=== PATIENT | male | born 1990 | race African-American/Black ===

== ENCOUNTER 2021-09-24 11:40 | Emergency (ER) | payer SELFPAY ==
[2021-09-24] MEDS ORDERED: IBUPROFEN 400 MG TAB ONE (13:30)
--- NOTE | 2021-09-24 13:45 | EDPHYS ---
Physician Documentation [facility] Name: Jose Carlos Pugh IV Age: 30 yrs Sex: Male : 1990 Arrival Date: 09/24/2021 Time: 11:42 Bed DIS4 Private MD: NIKITA Physician Dimas Jang HPI: 09/24 13:37 This 30 yrs old Black Male presents to ER via Ambulatory with complaints of Shoulder timo Injury. 13:37 The patient or guardian complains of decreased range of motion, pain, that is chronic. timo right shoulder. Context: The problem was sustained at work, resulted from repetitive motion, an unknown reason, The patient experiences decreased range of motion, The patient reports no obvious deformity. Onset: The symptoms/episode began/occurred 6 month(s) ago. Modifying factors: the symptoms are alleviated by remaining still, The symptoms are aggravated by movement. Associated signs and symptoms: The patient has no apparent associated signs or symptoms. Severity of symptoms: At their worst the symptoms were mild, in the emergency department the symptoms. Treatment prior to arrival includes: no previous treatment. The patient has experienced similar episodes in the past, several times. Historical: - Allergies: 12:10 No Known Allergies; ss - Home Meds: 12:10 None [Active]; ss - PMHx: 12:10 Depressive disorder; ss - PSHx: 12:10 None; ss - Immunization history:: Client reports having NOT received the Covid vaccine. - Social history:: Smoking status: Patient reports the use of cigarette tobacco products, 1 pp week. ROS: 13:38 Constitutional: Negative for fever, chills, and weight loss, Eyes: Negative for injury, timo pain, redness, and discharge, ENT: Negative for injury, pain, and discharge, Neck: Negative for injury, pain, and swelling, Cardiovascular: Negative for chest pain, palpitations, and edema, Respiratory: Negative for shortness of breath, cough, wheezing, and pleuritic chest pain, Abdomen/GI: Negative for abdominal pain, nausea, vomiting, diarrhea, and constipation, Back: Negative for injury and pain, : Negative for injury, bleeding, discharge, and swelling, Skin: Negative for injury, rash, and discoloration, Neuro: Negative for headache, weakness, numbness, tingling, and seizure, Psych: Negative for depression, anxiety, suicide ideation, homicidal ideation, and hallucinations, Allergy/Immunology: Negative for hives, rash, and allergies, Endocrine: Negative for neck swelling, polydipsia, polyuria, polyphagia, and marked weight changes. 13:38 MS/extremity: Positive for decreased range of motion, pain, tenderness, of the anterior aspect of right shoulder and posterior aspect of right shoulder. Exam: 13:38 Constitutional: This is a well developed, well nourished patient who is awake, alert, timo and in no acute distress. Head/Face: Normocephalic, atraumatic. Eyes: Pupils equal round and reactive to light, extra-ocular motions intact. Lids and lashes normal. Conjunctiva and sclera are non-icteric and not injected. Cornea within normal limits. Periorbital areas with no swelling, redness, or edema. ENT: Nares patent. No nasal discharge, no septal abnormalities noted. Tympanic membranes are normal and external auditory canals are clear. Oropharynx with no redness, swelling, or masses, exudates, or evidence of obstruction, uvula midline. Mucous membranes moist. Neck: Trachea midline, no thyromegaly or masses palpated, and no cervical lymphadenopathy. Supple, full range of motion without nuchal rigidity, or vertebral point tenderness. No Meningismus. Chest/axilla: Normal chest wall appearance and motion. Nontender with no deformity. No lesions are appreciated. Cardiovascular: Regular rate and rhythm with a normal S1 and S2. No gallops, murmurs, or rubs. Normal PMI, no JVD. No pulse deficits. Respiratory: Lungs have equal breath sounds bilaterally, clear to auscultation and percussion. No rales, rhonchi or wheezes noted. No increased work of breathing, no retractions or nasal flaring. Abdomen/GI: Soft, non-tender, with normal bowel sounds. No distension or tympany. No guarding or rebound. No evidence of tenderness throughout. Back: No spinal tenderness. No costovertebral tenderness. Full range of motion. Male : Normal genitalia with no discharge or lesions. Skin: Warm, dry with normal turgor. Normal color with no rashes, no lesions, and no evidence of cellulitis. Neuro: Awake and alert, GCS 15, oriented to person, place, time, and situation. Cranial nerves II-XII grossly intact. Motor strength 5/5 in all extremities. Sensory grossly intact. Cerebellar exam normal. Normal gait. Psych: Awake, alert, with orientation to person, place and time. Behavior, mood, and affect are within normal limits. 13:38 Musculoskeletal/extremity: ROM: intact in all extremities, limited active range of motion due to pain, limited passive range of motion due to pain, in the anterior aspect of right shoulder and posterior aspect of right shoulder, Circulation is intact in all extremities. Sensation intact. Compartment Syndrome exam of affected extremity: is normal. Joints: All joints are normal except Weight bearing: able to fully bear weight, Tendon exam: specific tendon testing normal through active and passive range of motion DVT Exam: No signs of deep vein thrombosis. no pain, no swelling, no tenderness, negative Homans' sign noted on exam, no appreciated bluish discoloration, no erythema, no increased warmth. Vital Signs: 12:11 BP 126 / 79; Pulse 75; Resp 14; Temp 99.0(TE); Pulse Ox 100% on R/A; Weight 54.43 kg; ss Height 5 ft. 7 in. (170.18 cm); Pain 9/10; 12:11 Body Mass Index 18.79 (54.43 kg, 170.18 cm) MDM: 11:55 Patient medically screened. [facility] 13:40 Differential diagnosis: DJD, tendonitis. Data reviewed: vital signs, nurses notes, [facility] radiologic studies, plain films. Data interpreted: communications programmer: rate is 75 beats/min, rhythm is regular, Pulse oximetry: on room air is 100 %. Test interpretation: by ED physician or midlevel provider: plain radiologic studies. Counseling: I had a detailed discussion with the patient and/or guardian regarding: the historical points, exam findings, and any diagnostic results supporting the discharge/admit diagnosis, lab results, radiology results, the need for outpatient follow up, for definitive care, a family practitioner, a orthopedic surgeon. 09/24 12:30 Order name: XRAY Shoulder RIGHT 2 view 09/24 13:13 Order name: Sling; Complete Time: 13:55 timo 09/24 13:13 Order name: Ice pack; Complete Time: 13:55 [facility] Administered Medications: 13:27 Drug: Motrin (ibuprofen) 400 mg Route: PO; 13:55 Follow up: Response: No adverse reaction ss Disposition Summary: 09/24/21 13:44 Discharge Ordered Location: Home timo Problem: new timo Symptoms: have improved timo Condition: Stable timo Diagnosis - Pain in right shoulder timo Followup: timo - With: Private Physician - When: 2 - 3 days - Reason: Recheck today's complaints, Continuance of care, Re-evaluation by your physician Followup: timo - With: Robert Rich MD - When: 2 - 3 days - Reason: Recheck today's complaints, Continuance of care, Re-evaluation by your physician Discharge Instructions: - Discharge Summary Sheet timo - Joint Pain timo - Musculoskeletal Pain timo - Shoulder Pain timo - Shoulder Pain, [id number] timo - How to Use Cold Therapy timo Forms: - Medication Reconciliation Form timo - Thank You Letter timo - Antibiotic Education timo - Prescription Opioid Use timo - Work release form eb Prescriptions: - Motrin IB 200 mg Oral Tablet - take 2 tablet by ORAL route every 6 hours As needed as needed with food; 30 timo tablet; Refills: 0, Product Selection Permitted Signatures: Dispatcher [employer] EDDimas Bueno MD MD cha Smirch, Shelby RN RN ss Corrections: (The following items were deleted from the chart) 12:11 12:10 PMHx: None; ss ss
--- NOTE | 2021-09-24 13:45 | ER ---
Nurse's Notes [facility] Name: Jose Carlos Pugh IV Age: 30 yrs Sex: Male : 1990 Arrival Date: 09/24/2021 Time: 11:42 Bed DIS4 Private MD: Diagnosis: Pain in right shoulder Presentation: 09/24 12:08 Chief complaint: Patient states: "I got hurt in 2008 and apparently I have no cartilage ss in my shoulders. They gave me steroid shots, and haven't had pain since, until recently." Pt c/o R shoulder pain, but would like to have his L shoulder checked out just in case. Coronavirus screen: Client denies travel out of the [place] in the last 14 days. Ebola Screen: Patient denies exposure to infectious person. Patient denies travel to an Ebola-affected area in the 21 days before illness onset. Initial Sepsis Screen: Does the patient meet any 2 criteria? No. Patient's initial sepsis screen is negative. Does the patient have a suspected source of infection? No. Patient's initial sepsis screen is negative. Risk Assessment: Do you want to hurt yourself or someone else? Patient reports no desire to harm self or others. Onset of symptoms is unknown. 12:08 Method Of Arrival: Ambulatory ss 12:08 Acuity: [place] 4 ss Historical: - Allergies: 12:10 No Known Allergies; ss - Home Meds: 12:10 None [Active]; ss - PMHx: 12:10 Depressive disorder; ss - PSHx: 12:10 None; ss - Immunization history:: Client reports having NOT received the Covid vaccine. - Social history:: Smoking status: Patient reports the use of cigarette tobacco products, 1 pp week. Screenin:55 Abuse screen: Denies threats or abuse. Denies injuries from another. Nutritional ss screening: No deficits noted. Tuberculosis screening: Never had TB. Fall Risk None identified. Assessment: 13:00 General: Appears in no apparent distress. comfortable, Behavior is calm, cooperative, ss Denies fever, feeling ill, fatigue, chills. Pain: Complains of pain in right shoulder Pain currently is 9 out of 10 on a pain scale. Aggravated by ROM. Neuro: Level of Consciousness is awake, alert, obeys commands, Oriented to person, place, time, situation. Cardiovascular: Capillary refill < 3 seconds is brisk in bilateral fingers. Respiratory: Airway is patent Respiratory effort is even, unlabored, Respiratory pattern is regular, symmetrical. Derm: Skin is intact, is healthy with good turgor, Skin is dry, Skin is pink, warm \\T\\ dry. normal. Musculoskeletal: Range of motion:. 13:55 Reassessment: Patient appears in no apparent distress at this time. Patient and/or ss family updated on plan of care and expected duration. Pain level reassessed. Patient is alert, oriented x 3, equal unlabored respirations, skin warm/dry/pink. Vital Signs: 12:11 BP 126 / 79; Pulse 75; Resp 14; Temp 99.0(TE); Pulse Ox 100% on R/A; Weight 54.43 kg; ss Height 5 ft. 7 in. (170.18 cm); Pain 9/10; 12:11 Body Mass Index 18.79 (54.43 kg, 170.18 cm) ED Course: 11:42 Patient arrived in ED. mr 11:54 Dimas Jang MD is Attending Physician. [facility] 12:10 Triage completed. 12:10 Arm band placed on right wrist. 13:24 Jemima Santizo, IGNACIA is Primary Nurse. 13:44 Robert Rich MD is Referral Physician. [facility] 13:55 Patient has correct armband on for positive identification. Bed in low position. Call ss light in reach. 13:55 No provider procedures requiring assistance completed. Patient did not have IV access ss during this emergency room visit. 14:03 XRAY Shoulder RIGHT 2 view In Process Unspecified. EDMS Administered Medications: 13:27 Drug: Motrin (ibuprofen) 400 mg Route: PO; 13:55 Follow up: Response: No adverse reaction Outcome: 13:44 Discharge ordered by . [facility] 13:56 Discharged to home ambulatory. 13:56 Condition: good 13:56 Discharge instructions given to patient, Instructed on discharge instructions, follow up and referral plans. medication usage, Demonstrated understanding of instructions, follow-up care, medications, Prescriptions given X 1. 13:57 Patient left the ED. Signatures: Dispatcher [employer] EDMS Dimas Jang MD MD cha Rivera, Mary mr Jemima Santizo, RN RN ss Corrections: (The following items were deleted from the chart) 12:11 12:10 PMHx: None; ss ss
--- NOTE | 2021-09-24 14:23 | RAD REPORT ---
EXAM DESCRIPTION: RAD - Shoulder Right 2 View - 09/24/2021 2:02 pm CLINICAL HISTORY: PAIN COMPARISON: No comparisons FINDINGS/IMPRESSION: No acute fracture. No malalignment. No significant focal degenerative changes.
[2021-09-24 14:56] VITALS: BP 126/79; TEMP 99; O2SAT 100
== END 2021-09-24 13:57 | disposition home or self-care (01) ==
LOC: ER 11:40
DX: M25.511 Pain in right shoulder (principal); Z72.0 Tobacco use
CPT/HCPCS: 99283